=== PATIENT | male | born 1975 | race Caucasian/White ===

== ENCOUNTER 2023-04-06 15:25 | Emergency (ER) | payer SELFPAY ==
[~2023-04-06] VITALS: Ht 175.3 cm; Wt 70.0 kg
[2023-04-06 15:26] VITALS: BP 144/88; TEMP 98.2; O2SAT 98
== END 2023-04-06 18:46 | disposition home or self-care (01) ==
LOC: M ED 15:25
DX: S32.020A Wedge compression fracture of second lumbar vertebra, initial encounter for closed fracture (principal); X58.XXXA Exposure to other specified factors, initial encounter; Y92.89 Other specified places as the place of occurrence of the external cause; Y93.89 Activity, other specified; Y99.8 Other external cause status; M51.26 Other intervertebral disc displacement, lumbar region; K58.9 Irritable bowel syndrome, unspecified; K22.70 Barrett's esophagus without dysplasia; F17.210 Nicotine dependence, cigarettes, uncomplicated; Z88.0 Allergy status to penicillin

== ENCOUNTER 2024-05-01 08:24 | Emergency (ER) | payer MEDICAID, OTHER, SELFPAY ==
[~2024-05-01] VITALS: Ht 175.3 cm; Wt 81.2 kg
[2024-05-01] MEDS ORDERED: CLON1TAB8 PO (08:32)
[2024-05-01] MEDS ORDERED: VYVA70CA3 PO (08:32)
[2024-05-01] MEDS ORDERED: LORazepam 2 MG TAB PO PRN (09:00)
[2024-05-01] MEDS: THIAMINE 100 MG TAB PO SCH (09:06)
[2024-05-01] MEDS: FOLIC ACID 1MG TAB PO SCH (09:06)
[2024-05-01] MEDS: MULTIVITAMINS/MINERALS THERAP 1 TAB PO SCH (09:07)
[2024-05-01] MEDS: clonazePAM 1 MG TAB PO ONE (09:07)
[2024-05-01 09:43] LABS: BASO # 0.1 10^3/uL (0.0-0.2); BASO % 0.5 % (0.0-1.0); EOS # 0.1 10^3/uL (0.0-0.5); EOS % 0.4 % (0.0-3.0); HEMATOCRIT 34.2 % (42.0-52.0); HEMOGLOBIN 12.3 g/dl (13.5-17.5); LYMPH # 1.4 10^3/uL (1.5-5.0); LYMPH % 8.3 % (24.0-44.0); MEAN CORPUSCULAR HEMOGLOBIN 37.4 pg (27.0-33.0); MONO % 5.6 % (2.0-8.0); NEUTROPHILS # 14.4 10^3/uL (1.5-8.5); PLATELET COUNT, AUTOMATED 320 10^3/uL (150-450); RED BLOOD COUNT 3.29 10^6/uL (4.30-6.10); WHITE BLOOD COUNT 17.1 10^3/uL (4.0-10.0)
[2024-05-01 09:58] LABS: INR 1.3; PARTIAL THROMBOPLASTIN TIME 37.8 SECONDS (24.8-34.2); PROTHROMBIN TIME 15.8 SECONDS (12.5-14.5)
[2024-05-01 10:07] LABS: LIPASE 38 U/L (12-53)
[2024-05-01] MEDS: ONDANSETRON 4MG 2ML VIAL IV ONE (10:10)
[2024-05-01 10:15] LABS: ALBUMIN 2.2 G/DL (3.2-5.2); ALKALINE PHOSPHATASE 307 U/L (46-116); ALT/SGPT 28 U/L (7.0-40); AST/SGOT 178 U/L (<34); BILIRUBIN,DIRECT 1.4 MG/DL (<0.4); BILIRUBIN,TOTAL 2.5 MG/DL (0.3-1.2); BLOOD UREA NITROGEN < 5 MG/DL (9-23); CALCIUM LEVEL 8.3 MG/DL (8.5-10.1); CARBON DIOXIDE LEVEL 30 MMOL/L (20-31); CHLORIDE LEVEL 100 MMOL/L (98-107); CREATININE FOR GFR 0.49 MG/DL (0.70-1.30); GLOMERULAR FILTRATION RATE > 60.0 (>60); GLUCOSE, FASTING 136 MG/DL (60-100); POTASSIUM SERUM 3.3 MMOL/L (3.5-5.1); SODIUM LEVEL 136 MMOL/L (136-145); TOTAL PROTEIN 6.4 G/DL (5.7-8.2)
[2024-05-01] MEDS ORDERED: ISOVUE-370 76% 100ML VIAL As Ordered ONE (10:54)
[2024-05-01] MEDS: POTASSIUM CHLORIDE 10MEQ SR TABLET PO ONE (10:56)
[2024-05-01] MEDS: MAG SULF 1GM/100ML (MAG RUN) 1 GM in IV 1 EA IV ONE ×2 (10:56→12:53)
[2024-05-01] MEDS ORDERED: NALT50TA4 PO (11:59)
[2024-05-01] MEDS ORDERED: THERTAB52 PO (11:59)
[2024-05-01] MEDS ORDERED: NEXI20CA PO (11:59)
[2024-05-01] MEDS ORDERED: HOME MED LIST COMPLETE! XX SCH (12:05)
[2024-05-01] MEDS: GASTROGRAFIN SOLUTION 30ML PO SCH (12:53)
[2024-05-01 13:46] LABS: APPEARANCE, URINE CLEAR (CLEAR); BACTERIA, URINE AUTO NEGATIVE (NEGATIVE); BILIRUBIN, URINE AUTO NEGATIVE (NEGATIVE); BLOOD, URINE BLOOD NEGATIVE (NEGATIVE); COLOR, URINE AMBER (YELLOW); GLUCOSE, URINE (UA) AUTO NEGATIVE (NEGATIVE); KETONE, URINE AUTO NEGATIVE (NEGATIVE); LEUKOCYTE ESTERASE, URINE AUTO TRACE (NEGATIVE); MUCUS, URINE SMALL (NEGATIVE); NITRITE, URINE AUTO POSITIVE (NEGATIVE); PROTEIN, URINE AUTO 1+ mg/dL (NEGATIVE); RBC, URINE AUTO 2 /HPF (0-3); SQUAMOUS EPITHELIAL CELL UR AU 0 /HPF (0-6); WBC, URINE AUTO 23 /HPF (0-3)
[2024-05-01 14:48] LABS: SPECIFIC GRAVITY URINE AUTO >1.060 (1.002-1.035)
[2024-05-01] MEDS ORDERED: CIPR-249 PO (17:11)
[2024-05-01] MEDS ORDERED: METR-265 PO (17:11)
[2024-05-01 17:44] VITALS: BP 124/68; TEMP 97.8; O2SAT 99
== END 2024-05-01 17:47 | disposition home or self-care (01) ==
LOC: EDBD 08:24 → M ED 08:24
DX: K52.9 Noninfective gastroenteritis and colitis, unspecified (principal); E83.42 Hypomagnesemia; E87.6 Hypokalemia; F10.10 Alcohol abuse, uncomplicated; Z87.442 Personal history of urinary calculi; F41.9 Anxiety disorder, unspecified; K58.9 Irritable bowel syndrome, unspecified; F17.200 Nicotine dependence, unspecified, uncomplicated; Z88.0 Allergy status to penicillin
CPT/HCPCS: 74176; 74177; 80048; 80076; 81001; 81002; 83605; 83690; 83735; 85025; 85610; 85730; 86850; 86900; 86901; 87040; 93005; 93041; 96365; 96366; 96368; 96375; 99285; J2405; J3475; Q9963; Q9967

== ENCOUNTER → 2024-06-06 | Outpatient (CLI) | payer OTHER ==
[~2024-06-06] MED LIST: CIPR-249 PO; CLON1TAB8 PO; METR-265 PO; NALT50TA4 PO; NEXI20CA PO; THERTAB52 PO; VYVA70CA3 PO
[2024-06-06 06:50] LABS: HEMATOCRIT 32.8 % (42.0-52.0); HEMOGLOBIN 11.3 g/dl (13.5-17.5); MEAN CORPUSCULAR HEMOGLOBIN 35.3 pg (27.0-33.0); MEAN CORPUSCULAR HGB CONC 34.5 g/dl (32.0-36.5); MEAN CORPUSCULAR VOLUME 102.5 fl (80.0-96.0); PLATELET COUNT, AUTOMATED 280 10^3/uL (150-450); WHITE BLOOD COUNT 8.1 10^3/uL (4.0-10.0)
[2024-06-06 07:00] LABS: APPEARANCE, URINE TURBID (CLEAR); BACTERIA, URINE AUTO 1+ (NEGATIVE); BILIRUBIN, URINE AUTO NEGATIVE (NEGATIVE); BLOOD, URINE BLOOD 3+ (NEGATIVE); COLOR, URINE AMBER (YELLOW); GLUCOSE, URINE (UA) AUTO NEGATIVE (NEGATIVE); KETONE, URINE AUTO NEGATIVE (NEGATIVE); LEUKOCYTE ESTERASE, URINE AUTO 2+ (NEGATIVE); MUCUS, URINE LARGE (NEGATIVE); NITRITE, URINE AUTO NEGATIVE (NEGATIVE); PROTEIN, URINE AUTO 2+ mg/dL (NEGATIVE); RBC, URINE AUTO 63 /HPF (0-3); SQUAMOUS EPITHELIAL CELL UR AU 0 /HPF (0-6); WBC, URINE AUTO 38 /HPF (0-3)
[2024-06-06 07:30] LABS: ALBUMIN 2.9 G/DL (3.2-5.2); ALKALINE PHOSPHATASE 113 U/L (46-116); ALT/SGPT 22 U/L (7.0-40); AST/SGOT 47 U/L (<34); BLOOD UREA NITROGEN 9 MG/DL (9-23); CALCIUM LEVEL 9.5 MG/DL (8.5-10.1); CARBON DIOXIDE LEVEL 30 MMOL/L (20-31); CHLORIDE LEVEL 103 MMOL/L (98-107); CREATININE FOR GFR 0.62 MG/DL (0.70-1.30); FOLATE 9.76 NG/ML (>5.4); GLOMERULAR FILTRATION RATE > 60.0 (>60); GLUCOSE, FASTING 111 MG/DL (60-100); MAGNESIUM LEVEL 1.5 MG/DL (1.8-2.4); POTASSIUM SERUM 3.6 MMOL/L (3.5-5.1); SODIUM LEVEL 138 MMOL/L (136-145); THYROID STIMULATING HORMONE 3.088 uIU/ML (0.55-4.78); TOTAL 25(OH) VITAMIN D 17.7 NG/ML (20.0-100.0); TOTAL PROTEIN 7.1 G/DL (5.7-8.2)
[2024-06-06 08:20] LABS: HEMOGLOBIN A1c 4.6 % (4.0-6.0)
== END ==
LOC: M LAB 06:09
PROVIDERS: ATTEND Nurse Practitioner Psychiatric/Mental Health
DX: F41.9 Anxiety disorder, unspecified (principal)